=== PATIENT | female | born 1965 | race African-American/Black ===

== ENCOUNTER 2019-09-02 11:06 | Inpatient (IN) | payer MEDICARE, MEDICAID ==
[~2019-09-02] VITALS: Ht 160 cm; Wt 59.0 kg
[2019-09-02 12:55] LABS: CLARITY URINE CLEAR (CLEAR); COLOR URINE YELLOW (YELLOW); KETONES URINE NEGATIVE (NEGATIVE); LEUKOCYTE ESTERASE URINE NEGATIVE (NEGATIVE); NITRITE URINE NEGATIVE (NEGATIVE); OCCULT BLOOD URINE NEGATIVE (NEGATIVE); PH URINE 5.5 (4.5-8.0); PROTEIN URINE NEGATIVE (NEGATIVE); UROBILINOGEN URINE 0.2 E.U./dL (0.2-1.0)
[2019-09-02] MEDS ORDERED: DEXTROSE 50% WATER 50ML SYRINGE IV ONE (13:00)
[2019-09-02 13:06] LABS: *AMPHETAMINES SCREEN URINE NEGATIVE (NEGATIVE)
[2019-09-02 13:07] LABS: *BARBITURATES SCREEN URINE NEGATIVE (NEGATIVE); *BENZODIAZEPINES SCREEN URINE NEGATIVE (NEGATIVE); *COCAINE SCREEN URINE NEGATIVE (NEGATIVE); METHADONE URINE SCREEN NEGATIVE (NEGATIVE); OPIATES URINE SCREEN NEGATIVE (NEGATIVE)
[2019-09-02 13:08] LABS: CANNABINOID URINE SCREEN NEGATIVE (NEGATIVE); PHENCYCLIDINE URINE SCREEN NEGATIVE (NEGATIVE)
[2019-09-02 14:11] LABS: BASOPHILS % 0.5 % (0.0-2.0); EOSINOPHILS % 0.4 % (0.0-5.0); HEMOGLOBIN. 12.5 g/dL (12.0-16.0); LYMPHOCYTES % 29.1 % (20.0-50.0); MEAN CORPUSCULAR HEMOGLOBIN 30.6 pg (28.0-32.0); MEAN CORPUSCULAR VOLUME 90.6 fL (81.0-99.0); MEAN PLATELET VOLUME 7.5 fl (7.4-10.4); MONOCYTES % 7.3 % (2.0-8.0); NEUTROPHILS % 62.7 % (40.0-76.0); PLATELET 301 x1000/uL (130-400); RED BLOOD CELL COUNT 4.09 mill/uL (4.2-5.4); RED CELL DISTRIBUTION WIDTH 12.7 % (11.6-14.6)
[2019-09-02 14:18] LABS: PROTHROMBIN TIME 10.4 sec (9.6-11.0)
[2019-09-02 14:24] LABS: CHLORIDE 106 mEq/L (98-107)
[2019-09-02 14:27] LABS: ETHANOL BLOOD < 10 mg/dL
[2019-09-02 14:32] LABS: CREATINE KINASE 392 IU/L (26-192)
[2019-09-02] MEDS ORDERED: ONDANSETRON HCL 4MG/2ML INJ IV PRN ×2 (17:00→20:45)
[2019-09-02] MEDS ORDERED: CLONIDINE 0.1MG TABLET PO PRN ×2 (17:00→20:45)
[2019-09-02] MEDS ORDERED: IPRATROPIUM/ALBUTEROL 0.5-3(2.5)MG/3ML NEB HHN PRN (17:00)
[2019-09-02] MEDS ORDERED: ACETAMINOPHEN 325MG TABLET PO PRN ×2 (17:00→20:45)
[2019-09-02] MEDS ORDERED: DIPHENHYDRAMINE 50MG/ML VIAL IV PRN ×2 (17:00→20:45)
[2019-09-02] MEDS ORDERED: ENOXAPARIN 40MG/0.4ML SYR SUBCUT SCH (17:00)
[2019-09-02 17:37] LABS: PHOSPHORUS 2.8 mg/dL (2.5-4.9)
[2019-09-02] MEDS ORDERED: DEXT 5%/0.45% NACL 1000ML 1,000 ML IV SCH (20:39)
[2019-09-02] MEDS ORDERED: NA PHOS,M-B/NA PHOS,DI-BA ENEMA 118ML PR PRN (20:45)
[2019-09-02] MEDS ORDERED: MORPHINE SULFATE 2 MG/ML CPJ (NOT FOR IM USE) IV PRN (20:45)
[2019-09-02] MEDS ORDERED: MAGNESIUM/ALUMINUM HYDROXIDE/SIMETHICONE 30ML UDC PO PRN (20:45)
[2019-09-02] MEDS ORDERED: DOCUSATE SODIUM 100MG CAPSULE PO PRN (20:45)
[2019-09-02] MEDS ORDERED: LORAZEPAM 2MG/ML CPJ IV PRN (20:45)
[2019-09-02] MEDS ORDERED: GUAIFENESIN 200MG/10ML SUGAR FREE UDC PO PRN (20:45)
[2019-09-02] MEDS ORDERED: HYDRALAZINE 20MG/ML VIAL IV PRN (20:45)
[2019-09-02] MEDS ORDERED: IPRATROPIUM/ALBUTEROL 0.5-3(2.5)MG/3ML NEB NEB PRN (20:45)
[2019-09-02] MEDS ORDERED: HYDROCODONE/ACETAMINOPHEN 10/325MG TABLET PO PRN (20:45)
[2019-09-02] MEDS ORDERED: INSULIN LISPRO 100 UNITS/ML SUBCUT SCH (21:00)
[2019-09-02] MEDS ORDERED: BLOOD SUGAR DIAGNOSTIC STRIP TEST SCH (21:00)
[2019-09-02] MEDS ORDERED: SODIUM CHLORIDE 0.9% INJ 3ML FLUSH IVF SCH (22:00)
[2019-09-02] MEDS: DEXTROSE 50% WATER 50ML SYRINGE IV PRN (23:03)
[2019-09-02 23:45] VITALS: BP 125/75
[2019-09-03 00:42] LABS: CREATINE KINASE 288 IU/L (26-192)
[2019-09-03 00:43] LABS: CREATINE KINASE MB FRACTION 3.8 ng/mL (0.5-3.6)
[2019-09-03 04:00] VITALS: BP 120/70
[2019-09-03 06:39] LABS: CHLORIDE 107 mEq/L (98-107)
[2019-09-03] MEDS: BLOOD SUGAR DIAGNOSTIC STRIP TEST SCH ×4 (06:40→20:42)
[2019-09-03] MEDS: SODIUM CHLORIDE 0.9% INJ 3ML FLUSH IVF SCH ×3 (06:41→21:35)
[2019-09-03 06:43] LABS: BASOPHILS % 0.3 % (0.0-2.0); HEMATOCRIT. 34.9 % (36.0-48.0); HEMOGLOBIN. 11.8 g/dL (12.0-16.0); LYMPHOCYTES % 30.2 % (20.0-50.0); MEAN CORPUSCULAR HEMOGLOBIN 30.7 pg (28.0-32.0); MEAN CORPUSCULAR VOLUME 91.1 fL (81.0-99.0); MEAN PLATELET VOLUME 7.4 fl (7.4-10.4); MONOCYTES % 11.4 % (2.0-8.0); NEUTROPHILS % 57.1 % (40.0-76.0); PLATELET 302 x1000/uL (130-400); RED BLOOD CELL COUNT 3.83 mill/uL (4.2-5.4); RED CELL DISTRIBUTION WIDTH 12.6 % (11.6-14.6)
[2019-09-03] MEDS: DEXTROSE 50% WATER 50ML SYRINGE IV PRN (06:43)
[2019-09-03 06:59] LABS: LDL CHOLESTEROL 125 mg/dL (5-100)
[2019-09-03 07:00] LABS: CREATINE KINASE 238 IU/L (26-192)
[2019-09-03 07:02] LABS: HDL CHOLESTEROL 37 mg/dL (40-59)
[2019-09-03] MEDS: INSULIN LISPRO 100 UNITS/ML SUBCUT SCH ×4 (07:50→20:42)
[2019-09-03 08:00] VITALS: BP 108/66
[2019-09-03] MEDS: ENOXAPARIN 40MG/0.4ML SYR SUBCUT SCH (09:44)
[2019-09-03 12:00] VITALS: BP 106/67
[2019-09-03] MEDS ORDERED: LORAZEPAM 2MG/ML CPJ IV NR (14:15)
[2019-09-03 16:00] VITALS: BP 119/70
[2019-09-03 20:00] VITALS: BP 94/64
[2019-09-04] VITALS: BP 96/64
[2019-09-04 04:00] VITALS: BP 99/58
[2019-09-04] MEDS: BLOOD SUGAR DIAGNOSTIC STRIP TEST SCH ×4 (06:53→21:00)
[2019-09-04] MEDS: INSULIN LISPRO 100 UNITS/ML SUBCUT SCH ×4 (06:53→21:00)
[2019-09-04] MEDS: SODIUM CHLORIDE 0.9% INJ 3ML FLUSH IVF SCH ×3 (06:53→21:18)
[2019-09-04 08:00] VITALS: BP 103/58
[2019-09-04] MEDS: ENOXAPARIN 40MG/0.4ML SYR SUBCUT SCH (09:31)
[2019-09-04 10:21] LABS: VITAMIN B12 SERUM 256 pg/mL (211-911)
[2019-09-04 12:00] VITALS: BP 102/50
[2019-09-04 16:00] VITALS: BP 123/99
[2019-09-04 17:06] LABS: BASOPHILS % 0.3 % (0.0-2.0); EOSINOPHILS % 1.2 % (0.0-5.0); HEMOGLOBIN. 12.1 g/dL (12.0-16.0); LYMPHOCYTES % 15.5 % (20.0-50.0); MEAN CORPUSCULAR HEMOGLOBIN 30.8 pg (28.0-32.0); MEAN CORPUSCULAR VOLUME 91.9 fL (81.0-99.0); MEAN PLATELET VOLUME 7.7 fl (7.4-10.4); MONOCYTES % 8.2 % (2.0-8.0); NEUTROPHILS % 74.8 % (40.0-76.0); PLATELET 313 x1000/uL (130-400); RED BLOOD CELL COUNT 3.92 mill/uL (4.2-5.4); RED CELL DISTRIBUTION WIDTH 12.8 % (11.6-14.6)
[2019-09-04 17:16] LABS: CHLORIDE 108 mEq/L (98-107)
[2019-09-04 20:00] VITALS: BP 110/68
[2019-09-04] MEDS: ATORVASTATIN CALCIUM 40MG TABLET PO SCH (21:00)
[2019-09-05 00:10] VITALS: BP 100/58
[2019-09-05 04:00] VITALS: BP 98/53
[2019-09-05] MEDS: SODIUM CHLORIDE 0.9% INJ 3ML FLUSH IVF SCH ×3 (06:13→21:03)
[2019-09-05] MEDS: BLOOD SUGAR DIAGNOSTIC STRIP TEST SCH ×3 (06:13→20:49)
[2019-09-05 07:48] VITALS: BP 102/62
[2019-09-05] MEDS: INSULIN LISPRO 100 UNITS/ML SUBCUT SCH ×3 (07:50→21:04)
[2019-09-05] MEDS: CYANOCOBALAMIN 100MCG TABLET PO SCH (08:47)
[2019-09-05] MEDS: ASPIRIN 81MG EC TABLET PO SCH (08:48)
[2019-09-05] MEDS: ENOXAPARIN 40MG/0.4ML SYR SUBCUT SCH (08:48)
[2019-09-05 11:45] VITALS: BP 114/68
[2019-09-05 15:38] VITALS: BP 118/73
[2019-09-05 20:00] VITALS: BP 103/65
[2019-09-05] MEDS: ATORVASTATIN CALCIUM 40MG TABLET PO SCH (21:03)
[2019-09-06 00:15] VITALS: BP 163/98
[2019-09-06 04:49] VITALS: BP 124/74
[2019-09-06] MEDS: SODIUM CHLORIDE 0.9% INJ 3ML FLUSH IVF SCH ×3 (05:02→21:17)
[2019-09-06] MEDS: BLOOD SUGAR DIAGNOSTIC STRIP TEST SCH ×4 (06:18→21:17)
[2019-09-06 06:51] LABS: BASOPHILS % 0.4 % (0.0-2.0); EOSINOPHILS % 2.3 % (0.0-5.0); HEMATOCRIT. 38.5 % (36.0-48.0); HEMOGLOBIN. 12.9 g/dL (12.0-16.0); MEAN CORPUSCULAR HEMOGLOBIN 30.5 pg (28.0-32.0); MEAN PLATELET VOLUME 7.6 fl (7.4-10.4); MONOCYTES % 8.8 % (2.0-8.0); NEUTROPHILS % 65.5 % (40.0-76.0); PLATELET 301 x1000/uL (130-400); RED BLOOD CELL COUNT 4.23 mill/uL (4.2-5.4); RED CELL DISTRIBUTION WIDTH 12.8 % (11.6-14.6)
[2019-09-06 07:27] LABS: CHLORIDE 106 mEq/L (98-107)
[2019-09-06] MEDS: INSULIN LISPRO 100 UNITS/ML SUBCUT SCH ×4 (07:50→21:00)
[2019-09-06 07:55] VITALS: BP 94/52
[2019-09-06] MEDS: CYANOCOBALAMIN 100MCG TABLET PO SCH (08:32)
[2019-09-06] MEDS: ASPIRIN 81MG EC TABLET PO SCH (08:32)
[2019-09-06] MEDS: ENOXAPARIN 40MG/0.4ML SYR SUBCUT SCH (08:33)
[2019-09-06 11:40] VITALS: BP 101/63
[2019-09-06 15:41] VITALS: BP 110/62
[2019-09-06] MEDS ORDERED: RISP1TAB26 PO (16:42)
[2019-09-06] MEDS ORDERED: BUPR-43 PO (16:42)
[2019-09-06] MEDS ORDERED: CLOP75TA4 PO (16:44)
[2019-09-06] MEDS ORDERED: METF-414 PO (16:44)
[2019-09-06] MEDS ORDERED: ASPI-1497 PO (16:44)
[2019-09-06 20:00] VITALS: BP 105/73
[2019-09-06] MEDS: ATORVASTATIN CALCIUM 40MG TABLET PO SCH (21:17)
[2019-09-07 00:21] VITALS: BP 104/67
[2019-09-07 04:00] VITALS: BP 117/77
[2019-09-07] MEDS: SODIUM CHLORIDE 0.9% INJ 3ML FLUSH IVF SCH ×3 (05:16→22:00)
[2019-09-07] MEDS: BLOOD SUGAR DIAGNOSTIC STRIP TEST SCH ×4 (07:02→20:36)
[2019-09-07] MEDS: INSULIN LISPRO 100 UNITS/ML SUBCUT SCH ×4 (07:29→20:36)
[2019-09-07 08:00] VITALS: BP 115/73
[2019-09-07] MEDS: CYANOCOBALAMIN 100MCG TABLET PO SCH (08:33)
[2019-09-07] MEDS: ASPIRIN 81MG EC TABLET PO SCH (08:34)
[2019-09-07] MEDS: ENOXAPARIN 40MG/0.4ML SYR SUBCUT SCH (08:34)
[2019-09-07] MEDS: RISPERIDONE 1MG TABLET PO SCH (08:34)
[2019-09-07 12:00] VITALS: BP 115/67
[2019-09-07 16:00] VITALS: BP 93/61
[2019-09-07 20:00] VITALS: BP 124/67
[2019-09-07] MEDS: ATORVASTATIN CALCIUM 40MG TABLET PO SCH (21:55)
[2019-09-08] VITALS: BP 106/71
[2019-09-08 04:00] VITALS: BP 111/71
[2019-09-08] MEDS: SODIUM CHLORIDE 0.9% INJ 3ML FLUSH IVF SCH ×3 (05:21→22:02)
[2019-09-08] MEDS: BLOOD SUGAR DIAGNOSTIC STRIP TEST SCH ×4 (06:56→21:00)
[2019-09-08] MEDS: INSULIN LISPRO 100 UNITS/ML SUBCUT SCH ×4 (07:39→21:00)
[2019-09-08 08:00] VITALS: BP 114/71
[2019-09-08] MEDS: RISPERIDONE 1MG TABLET PO SCH (08:35)
[2019-09-08] MEDS: ASPIRIN 81MG EC TABLET PO SCH (08:35)
[2019-09-08] MEDS: CYANOCOBALAMIN 100MCG TABLET PO SCH (08:35)
[2019-09-08] MEDS: ENOXAPARIN 40MG/0.4ML SYR SUBCUT SCH (08:36)
[2019-09-08 12:00] VITALS: BP 106/65
[2019-09-08 16:00] VITALS: BP 114/70
[2019-09-08 20:00] VITALS: BP 96/75
[2019-09-08] MEDS: ATORVASTATIN CALCIUM 40MG TABLET PO SCH (22:01)
[2019-09-09 00:37] VITALS: BP 103/77
[2019-09-09 04:00] VITALS: BP 120/63
[2019-09-09] MEDS: SODIUM CHLORIDE 0.9% INJ 3ML FLUSH IVF SCH ×2 (06:05→14:00)
[2019-09-09] MEDS: BLOOD SUGAR DIAGNOSTIC STRIP TEST SCH ×2 (06:45→12:58)
[2019-09-09] MEDS: INSULIN LISPRO 100 UNITS/ML SUBCUT SCH ×2 (07:50→12:50)
[2019-09-09 08:00] VITALS: BP 99/60
[2019-09-09] MEDS: ASPIRIN 81MG EC TABLET PO SCH (08:19)
[2019-09-09] MEDS: RISPERIDONE 1MG TABLET PO SCH (08:19)
[2019-09-09] MEDS: ENOXAPARIN 40MG/0.4ML SYR SUBCUT SCH (08:20)
[2019-09-09] MEDS: CYANOCOBALAMIN 100MCG TABLET PO SCH (08:20)
[2019-09-09] MEDS ORDERED: DONEPEZIL HCL 5MG TABLET PO SCH (09:00)
[2019-09-09 12:00] VITALS: BP 91/61
[2019-09-09] MEDS ORDERED: DONE5TAB7 PO (13:32)
[2019-09-09] MEDS ORDERED: LIP40 PO (13:32)
[2019-09-09 14:17] VITALS: BP 97/61
[2019-09-09 16:00] VITALS: BP 109/64
== END 2019-09-09 15:45 | disposition home or self-care (01) | DRG 66 ==
LOC: EDBD 13:13 → ER 13:13 → EDBEDREQ 16:55 → ENRESERV 22:42 → 6WST 23:31
PROVIDERS: ADMIT Internal Medicine; ATTEND Internal Medicine
DX: I63.89 Other cerebral infarction (principal); F03.90 Unspecified dementia, unspecified severity, without behavioral disturbance, psychotic disturbance, mood disturbance, and anxiety; E11.649 Type 2 diabetes mellitus with hypoglycemia without coma; I10 Essential (primary) hypertension; E03.9 Hypothyroidism, unspecified; F01.50 Vascular dementia, unspecified severity, without behavioral disturbance, psychotic disturbance, mood disturbance, and anxiety; E78.5 Hyperlipidemia, unspecified; R32 Unspecified urinary incontinence; Z78.1 Physical restraint status
CPT/HCPCS: 36415; 70551; 71045; 80048; 80053; 80061; 80305; 80307; 80320; 80329; 81003; 82140; 82550; 82553; 82607; 82962; 83036; 83735; 84100; 84439; 84443; 84481; 84484; 85025; 92523; 93005; 93306; 93880; 93970; 97162; 97530; 99285; A6261; J1200; J1650; J1815; J2060; G0480